=== PATIENT | female | born 1995 | race Caucasian/White ===

== ENCOUNTER 2018-07-03 21:00 | Emergency (ER) | payer SELFPAY ==
--- NOTE | 2018-07-03 21:13 | PDOC ---
History of Present Illness - General History Source: Patient Exam Limitations: No Limitations - History of Present Illness Initial Comments: 07/03/18 21:30 The patient is a 23 year old female, with a significant PMH of recurring throat infections, who presents to the emergency department with left side pain that began yesterday. The patient states she felt a bump next to her ear that progressively worsened today. The patient states she felt like the bump became bigger and more painful to touch. The patient denies chest pain, shortness of breath, headache and dizziness. Denies fever, chills, nausea, vomit, diarrhea and constipation. Denies dysuria, frequency, urgency and hematuria. Allergies:iodine Past surgical history: None reported Social history: None reported PCP: None reported <Alvaro Whitaker - Last Filed: 07/03/18 21:30> <Leah Pollard - Last Filed: 07/03/18 22:51> - General Chief Complaint: Pain Stated Complaint: PAIN AROUND LT EAR Time Seen by Provider: 07/03/18 21:02 Past History <Alvaro Whitaker - Last Filed: 07/03/18 21:30> - Past Medical History COPD: No - Suicide/Smoking/Psychosocial Hx Smoking History: Never smoked <Leah Pollard - Last Filed: 07/03/18 22:51> - Past Medical History Allergies/Adverse Reactions: Allergies Allergy/AdvReac Type Severity Reaction Status Date / Time Iodine and Iodide Containing Allergy Verified 07/03/18 21:02 Produc Home Medications: Ambulatory Orders NK [No Known Home Medication] 07/03/18 Review of Systems - Review of Systems Comments:: 07/03/18 21:30 GENERAL/CONSTITUTIONAL: No fever or chills. No weakness. HEAD, EYES, EARS, NOSE AND THROAT: No change in vision. No ear pain or discharge. No sore throat. CARDIOVASCULAR: No chest pain or shortness of breath. RESPIRATORY: No cough, wheezing, or hemoptysis. GASTROINTESTINAL: No nausea, vomiting, diarrhea or constipation. GENITOURINARY: No dysuria, frequency, or change in urination. MUSCULOSKELETAL: No joint or muscle swelling or pain. No neck or back pain. SKIN: No rash NEUROLOGIC: No headache, vertigo, loss of consciousness, or change in strength/ sensation. ENDOCRINE: No increased thirst. No abnormal weight change. HEMATOLOGIC/LYMPHATIC: No anemia, easy bleeding, or history of blood clots. ALLERGIC/IMMUNOLOGIC: No hives or skin allergy. <ShermanHeberkeshawncasey - Last Filed: 07/03/18 21:30> *Physical Exam - Vital Signs Last Vital Signs Temp Pulse Resp BP Pulse Ox 99 F 74 16 124/79 100 07/03/18 21:04 07/03/18 21:04 07/03/18 21:04 07/03/18 21:04 07/03/18 21:04 - Physical Exam Comments: 07/03/18 21:30 GENERAL: Awake, alert, and fully oriented, in no acute distress HEAD: No signs of trauma EYES: PERRLA, EOMI, sclera anicteric, conjunctiva clear ENT: Auricles normal inspection, hearing grossly normal, nares patent, oropharynx clear without exudates. Moist mucosa NECK: Normal ROM, supple, no lymphadenopathy, JVD, or masses LUNGS: Breath sounds equal, clear to auscultation bilaterally. No wheezes, and no crackles HEART: Regular rate and rhythm, normal S1 and S2, no murmurs, rubs or gallops ABDOMEN: Soft, nontender, normoactive bowel sounds. No guarding, no rebound. No masses EXTREMITIES: Normal range of motion, no edema. No clubbing or cyanosis. No cords, erythema, or tenderness NEUROLOGICAL: Cranial nerves II through XII grossly intact. Normal speech, normal gait SKIN: Warm, Dry, normal turgor, no rashes or lesions noted. <ShermanAlvaro - Last Filed: 07/03/18 21:30> - Vital Signs Last Vital Signs Temp Pulse Resp BP Pulse Ox 99 F 74 16 124/79 100 07/03/18 21:04 07/03/18 21:04 07/03/18 21:04 07/03/18 21:04 07/03/18 21:04 <Leah Pollard - Last Filed: 07/03/18 22:51> ED Treatment Course - LABORATORY CBC & Chemistry Diagram: 07/03/18 21:35 07/03/18 21:35 <Leah Pollard - Last Filed: 07/03/18 22:51> Medical Decision Making - Medical Decision Making 07/03/18 21:28 Pt comes with left ear anterior and posterior lymph node swelling and pain. 07/03/18 22:49 Labs are normal; pt is afebrile; She has no TM infection or scalp infection; no intraoral infections, dental infection. Unclear why she has swollen lymph nodes at the ear, but she did color her hair 3 weeks back and she changed her earrings 2-3 days ago (she has sensitivity to her earrings) and she states that she cleans out her ears with her fingernails and perhaps may have scratched the inside of her ear canal. Pt's exam is completely normal and she has been reassured and she is ready for d /c home. <Leah Pollard - Last Filed: 07/03/18 22:51> *DC/Admit/Observation/Transfer - Attestations Scribe Attestion: 07/03/18 21:31 Documentation prepared by Alvaro Whitaker, acting as medical coordinator pesticide use for Leah Pollard MD. <Alvaro Whitaker - Last Filed: 07/03/18 21:30> - Discharge Dispostion Decision to Admit order: No <Leah Pollard - Last Filed: 07/03/18 22:51> Diagnosis at time of Disposition: Lymphadenopathy of head and neck - Discharge Dispostion Disposition: HOME Condition at time of disposition: Stable - Patient Instructions Printed Discharge Instructions: DI for Lymphadenopathy
[2018-07-03 21:22] VITALS: BP 124/79; PULSE 74; TEMP 99; BMI 19.3
[2018-07-03 21:52] LABS: BASO % 0.4 % (0-2.0); EOS % 2.1 % (0-4.5); HEMATOCRIT 38.3 % (32.4-45.2); HEMOGLOBIN 13.1 GM/dl (10.7-15.3); LYMPH % 41.1 % (8-40); MCH 30.4 pg (25.7-33.7); MCHC 34.1 g/dl (32.0-36.0); MEAN CELL VOLUME 89.1 fl (80-96); MEAN PLT VOLUME 8.6 fl (7.5-11.1); MONO % 10.7 % (3.8-10.2); NEUT % 45.7 % (42.8-82.8); PLATELET COUNT 181 K/MM3 (134-434); WHITE BLOOD COUNT 6.4 K/mm3 (4.0-10.8)
[2018-07-03 22:05] LABS: ALBUMIN 4.3 g/dl (3.5-5.0); ALK PHOS 42 U/L (32-92); ANION GAP 8 MMOL/L (8-16); BILIRUBIN,TOTAL 0.5 mg/dl (0.2-1.0); BLOOD UREA NITROGEN 11 mg/dl (7-18); CALCIUM 9.1 mg/dl (8.4-10.2); CHLORIDE 105 mmol/L (98-107); CO2 25 mmol/L (22-28); CREATININE 0.6 mg/dl (0.6-1.3); GLUCOSE,RANDOM 93 mg/dl (74-106); POTASSIUM 3.8 mmol/L (3.5-5.1); SGOT/AST 16 U/L (10-42); SGPT/ALT 12 U/L (10-40); SODIUM 138 mmol/L (136-145)
== END 2018-07-03 22:25 | disposition home or self-care (01) ==
LOC: FER 21:00
DX: R59.1 Generalized enlarged lymph nodes (principal)
CPT/HCPCS: 36415; 80053; 85025; 99281-25